=== PATIENT | female | born 1940 | race Caucasian/White ===

== ENCOUNTER 2019-05-08 08:34 | Outpatient (CLI) | payer MEDICARE, OTHER ==
[2019-05-08 16:54] LABS: #Basophils 0.1 thou/uL (0.0-0.2); #Eosinphils 0.4 thou/uL (0.0-0.7); #Lymphocytes 1.7 thou/uL (1.20-3.40); #Monocytes 0.6 thou/uL (0.11-0.59); %Basophils 0.8 % (0.0-1.0); %Eosinophils 4.7 % (0.0-10.0); %Lymphocytes 21.6 % (21.0-51.0); %Monocytes 7.6 % (0.0-10.0); %Neutrophils 65.4 % (42.0-75.0); Hemoglobin 13.5 g/dL (12.0-16.0); Mean Corpuscular HGB CONC 31.4 g/dL (32.0-36.0); Mean Corpuscular Hemoglobin 29.6 pg (27.0-31.0); Mean Corpuscular Volume 94.1 fL (78.0-98.0); Mean Platelet Volume 8.5 fL (7.4-10.4); Platelet Count 243 thou/uL (130-400); RBC Distribution Width 11.8 % (11.5-14.5); Red Blood Cell (RBC) Count 4.57 mill/uL (4.20-5.40); White Blood Cell (WBC) Count 7.6 thou/uL (4.8-10.8)
[2019-05-08 17:21] LABS: ALT (SGPT) 20 U/L (8-55); AST (SGOT) 21 U/L (5-34); Albumin 4.4 g/dL (3.4-4.8); Alkaline Phosphatase 73 U/L (40-110); Anion Gap 15 mmol/L (10-20); BUN (Urea Nitrogen) 25 mg/dL (9.8-20.1); Bilirubin, Total 0.4 mg/dL (0.2-1.2); Calc. Creatinine Clearance 0 mL/min (70-130); Calcium 9.6 mg/dL (7.8-10.44); Carbon Dioxide 25 mmol/L (23-31); Chloride 105 mmol/L (98-107); Estimated GFR-MDRD 57; Globulin 2.8 g/dL (2.4-3.5); Glucose 85 mg/dL (83-110); Potassium 4.7 mmol/L (3.5-5.1); Protein, Total 7.2 g/dL (6.0-8.3); Sodium 140 mmol/L (136-145)
== END 2019-05-08 08:35 | disposition home or self-care (01) ==
LOC: LABBT 08:34
PROVIDERS: ATTEND Surgery
DX: Z01.818 Encounter for other preprocedural examination (principal); N63.0 Unspecified lump in unspecified breast
CPT/HCPCS: 80053; 85025; 93005; 93010

== ENCOUNTER 2019-05-14 08:32 | Day surgery (SDC) | payer MEDICARE, OTHER ==
[2019-05-08 15:09] VITALS: BMI 35.6
[2019-05-14] MEDS ORDERED: Dexamethasone 20 MG/5 ML VIAL ONE (10:17)
[2019-05-14] MEDS ORDERED: PROPOFOL 200 MG/20 ML VIAL ONE (10:17)
[2019-05-14] MEDS ORDERED: Ondansetron PF 4 MG/2 ML Vial ONE (10:17)
[2019-05-14] MEDS ORDERED: Bupivacaine HCl 0.5%/Epinephrine 1:200,000/PF 30 ml Vial ONE (11:12)
[2019-05-14] MEDS ORDERED: Fentanyl 100 MCG/2 ML VIAL ONE (11:21)
--- NOTE | 2019-05-14 12:55 | OP ---
DATE OF PROCEDURE: 05/14/2019 PREOPERATIVE DIAGNOSIS: Left breast mass. PROCEDURE PERFORMED: Left breast lumpectomy. INDICATIONS: This is 78-year-old female who has had a normal mammogram, but it noticed a left nipple retraction over the last few months and it started developing a palpable mass. FINDINGS: A 3 x 3 cm mass in the upper outer quadrant of the left breast. DESCRIPTION OF PROCEDURE: After informed consent was obtained, the patient was taken to the operating room and given general mask anesthesia and placed in supine position. Her left breast was prepped and draped in usual fashion. Local anesthesia infiltrated subcutaneously and deep and a circumareolar incision was performed. Subcu divided sharply. The mass was excised sharply with Metzenbaum scissors and was marked with a black suture superior, blue suture anterior, white suture lateral, sent to Pathology for further analysis. Hemostasis was achieved with electrocautery. The wound was thoroughly irrigated with saline. Subcu reapproximated with interrupted 3-0 Vicryl, skin closed with running subcuticular 4-0 Rapide. Steri-Strips applied. Sterile bandage applied. The patient tolerated the procedure well and transferred to Recovery in good condition. Sponge and needle count verified correct x2. Job ID: [id number]
== END 2019-05-14 14:10 | disposition home or self-care (01) ==
LOC: SDC 08:32
PROVIDERS: ATTEND Surgery
PROC: 0HBU0ZZ Excision of Left Breast, Open Approach (ICD-10-PCS; principal; 2019-05-14)
DX: C50.412 Malignant neoplasm of upper-outer quadrant of left female breast (principal); K21.9 Gastro-esophageal reflux disease without esophagitis; M19.90 Unspecified osteoarthritis, unspecified site; G89.29 Other chronic pain; H91.93 Unspecified hearing loss, bilateral; Z79.899 Other long term (current) drug therapy
CPT/HCPCS: 88307; J0670; J0690; J1100; J2405; J2704; J3010

== ENCOUNTER 2019-05-17 15:38 | Emergency (ER) | payer MEDICARE, OTHER | END 2019-05-17 16:26 | disposition home or self-care (01) | LOC: SCSER 15:38 | DX: L25.9 Unspecified contact dermatitis, unspecified cause (principal) | CPT/HCPCS: 99282 ==

== ENCOUNTER 2019-06-12 06:46 | Outpatient (CLI) | payer MEDICARE, OTHER ==
[2019-06-12 11:01] LABS: #Basophils 0.1 thou/uL (0.0-0.2); #Eosinphils 0.4 thou/uL (0.0-0.7); #Lymphocytes 1.4 thou/uL (1.20-3.40); #Monocytes 0.5 thou/uL (0.11-0.59); #Neutrophils 3.9 thou/uL (1.40-6.50); %Basophils 1.2 % (0.0-1.0); %Lymphocytes 22.7 % (21.0-51.0); %Monocytes 7.7 % (0.0-10.0); %Neutrophils 62.4 % (42.0-75.0); Mean Corpuscular HGB CONC 33.5 g/dL (32.0-36.0); Mean Corpuscular Hemoglobin 31.2 pg (27.0-31.0); Mean Corpuscular Volume 93.3 fL (78.0-98.0); Mean Platelet Volume 7.9 fL (7.4-10.4); Platelet Count 230 thou/uL (130-400); RBC Distribution Width 11.6 % (11.5-14.5); White Blood Cell (WBC) Count 6.2 thou/uL (4.8-10.8)
[2019-06-12 11:13] LABS: ALT (SGPT) 20 U/L (8-55); AST (SGOT) 19 U/L (5-34); Albumin 4.2 g/dL (3.4-4.8); Alkaline Phosphatase 69 U/L (40-110); Anion Gap 12 mmol/L (10-20); BUN (Urea Nitrogen) 21 mg/dL (9.8-20.1); Bilirubin, Total 0.5 mg/dL (0.2-1.2); Calc. Creatinine Clearance 0 mL/min (70-130); Calcium 9.8 mg/dL (7.8-10.44); Carbon Dioxide 26 mmol/L (23-31); Chloride 104 mmol/L (98-107); Estimated GFR-MDRD 60; Globulin 3.1 g/dL (2.4-3.5); Glucose 95 mg/dL (83-110); Potassium 4.1 mmol/L (3.5-5.1); Protein, Total 7.3 g/dL (6.0-8.3); Sodium 138 mmol/L (136-145)
== END 2019-06-12 06:47 | disposition home or self-care (01) ==
LOC: LABBT 06:46
PROVIDERS: ATTEND Surgery
DX: Z01.818 Encounter for other preprocedural examination (principal); C50.912 Malignant neoplasm of unspecified site of left female breast; N63.20 Unspecified lump in the left breast, unspecified quadrant
CPT/HCPCS: 80053; 85025; 93005; 93010

== ENCOUNTER 2019-06-12 09:15 | Inpatient (IN) | payer MEDICARE, OTHER ==
[2019-06-12 09:47] VITALS: BMI 33.7
[2019-06-18] MEDS ORDERED: PROPOFOL 200 MG/20 ML VIAL ONE (12:59)
[2019-06-18] MEDS ORDERED: Ondansetron PF 4 MG/2 ML Vial ONE (12:59)
[2019-06-18] MEDS ORDERED: Dexamethasone 20 MG/5 ML VIAL ONE (12:59)
[2019-06-18] MEDS ORDERED: Lidocaine 1% PF 5 ML VIAL ONE (12:59)
--- NOTE | 2019-06-18 13:03 | NM ---
EXAM: NM Lymphoscintigraphy, left breast PROVIDED CLINICAL HISTORY: Malignant neoplasm left female breast of unspecified site. Left breast lymphoscintigraphy was request ed prior to mastectomy. COMPARISON: None FINDINGS: Left breast lymphoscintigraphy was performed in usual fashion. 385 uCi of technetium 99m filtered sul fur colloid was administered intradermally and subcutaneously in 4 separate aliquots in the left periareolar region. Immediate as well as 1 hour, 2 hour, 3 hour delayed imaging was performed. No foc al area of uptake of radiotracer is seen to correspond to a sentinel lymph node on delayed imaging. As a result, the patient was transported to the operating room for surgery. IMPRESSION: Left breast lymphoscintigraphy was performed. However, no focal area of uptake of radiotracer is visu alized corresponding to a sentinel lymph node as described above.
[2019-06-18] MEDS ORDERED: Isosulfan Blue 50 MG/5 ML VIAL ONE (13:04)
[2019-06-18] MEDS ORDERED: Bupivacaine PF 0.5% 30 ML VIAL ONE (13:04)
[2019-06-18] MEDS ORDERED: Lidocaine 1% w/Epinephrine 1:100K 20 ML VIAL ONE (13:04)
[2019-06-18] MEDS ORDERED: Fentanyl 100 MCG/2 ML VIAL ONE ×3 (13:07→16:51)
[2019-06-18] MEDS ORDERED: hydrALAZINE 20 MG/ML VIAL SLOW IVP PRN (15:34)
[2019-06-18] MEDS ORDERED: Morphine 4 MG/ML VIAL SLOW IVP PRN (15:34)
[2019-06-18] MEDS ORDERED: HYDROcodone/Acetaminophen 10/325 mg Tablet PO PRN ×2 (15:34)
[2019-06-18] MEDS ORDERED: Ondansetron PF 4 MG/2 ML Vial IVP PRN (15:34)
[2019-06-18] MEDS ORDERED: Promethazine HCl 25 MG/ML VIAL IM PRN ×2 (15:34→15:37)
[2019-06-18] MEDS ORDERED: Dextrose 50% Abboject 50 ML SYRINGE SLOW IVP PRN (15:34)
[2019-06-18] MEDS ORDERED: Dextrose 5% in Water 1,000 ML IV PRN (15:34)
[2019-06-18] MEDS ORDERED: Morphine 2 MG/ML SYRINGE SLOW IVP PRN (15:34)
[2019-06-18] MEDS ORDERED: Ondansetron HCl/PF 4 MG/2 ML Vial IVP PRN (15:37)
[2019-06-18] MEDS ORDERED: Promethazine HCl 25 MG/ML VIAL SLOW IVP PRN (15:37)
[2019-06-18] MEDS: Famotidine 20 MG TAB PO SCH (20:45)
[2019-06-18] MEDS: Docusate 100 MG CAP PO SCH (20:45)
[2019-06-19] MEDS: D5 1/2 NS w/20 mEq KCL 1,000 ML IV SCH ×3 (01:13→06:25)
[2019-06-19 05:01] LABS: #Eosinphils 0.1 thou/uL (0.0-0.7); #Lymphocytes 0.8 thou/uL (1.20-3.40); #Monocytes 0.8 thou/uL (0.11-0.59); #Neutrophils 10.3 thou/uL (1.40-6.50); %Basophils 0.1 % (0.0-1.0); %Eosinophils 0.6 % (0.0-10.0); %Lymphocytes 6.3 % (21.0-51.0); %Monocytes 6.9 % (0.0-10.0); %Neutrophils 86.2 % (42.0-75.0); Hemoglobin 11.8 g/dL (12.0-16.0); Mean Corpuscular HGB CONC 33.6 g/dL (32.0-36.0); Mean Corpuscular Hemoglobin 31.5 pg (27.0-31.0); Mean Corpuscular Volume 93.8 fL (78.0-98.0); Mean Platelet Volume 8.5 fL (7.4-10.4); Platelet Count 198 thou/uL (130-400); RBC Distribution Width 11.6 % (11.5-14.5); Red Blood Cell (RBC) Count 3.74 mill/uL (4.20-5.40); White Blood Cell (WBC) Count 11.9 thou/uL (4.8-10.8)
[2019-06-19 05:16] LABS: Anion Gap 11 mmol/L (10-20); BUN (Urea Nitrogen) 18 mg/dL (9.8-20.1); Calc. Creatinine Clearance 78 mL/min (70-130); Calcium 8.7 mg/dL (7.8-10.44); Carbon Dioxide 25 mmol/L (23-31); Chloride 106 mmol/L (98-107); Estimated GFR-MDRD 66; Glucose 115 mg/dL (83-110); Potassium 4.2 mmol/L (3.5-5.1); Sodium 138 mmol/L (136-145)
[2019-06-19 07:38] VITALS: BP 101/55; TEMP 97.8
[2019-06-19] MEDS: Docusate 100 MG CAP PO SCH (08:53)
[2019-06-19] MEDS: Famotidine 20 MG TAB PO SCH (08:53)
[2019-06-19] MEDS ORDERED: Enoxaparin Sodium 40 MG/0.4 ML SYRINGE SC SCH (09:00)
--- NOTE | 2019-06-19 09:00 | OP ---
DATE OF PROCEDURE: 06/18/2019 PREOPERATIVE DIAGNOSIS: Invasive lobular carcinoma of the left breast. PROCEDURES PERFORMED: Bilateral total mastectomy with sentinel lymph node biopsy on the left and lymphoscintigraphy. 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 She elected for bilateral mastectomy. FINDINGS: Two sentinel lymph nodes were found. DESCRIPTION OF PROCEDURE: After informed consent was obtained, the patient was taken to the operating room, given general endotracheal anesthesia, placed in supine position. Both breasts were prepped and draped in usual fashion. She had undergone injection of radionucleotide in the nuclear medicine department. Started on the right, an elliptical incision was performed to include the nipple areolar complex. The plane was developed between subcutaneous tissue and breast tissue utilizing the plasma blade. This was extended to the level of the clavicle superiorly, sternum medially, latissimus laterally, rectus inferiorly, then taken off the pectoralis muscle to include the fascia with the plasma blade. It was marked with a suture superior and sent to Pathology for further analysis. Hemostasis was achieved utilizing the plasma blade. Subcu was irrigated. The subcu was reapproximated with interrupted 3-0 Vicryl. Skin was closed with a running subcuticular 4-0 Rapide. Then, Lymphazurin was then infiltrated subareolar and peritumoral. The Neoprobe was used, and a baseline with counts of 15 were found, found the area of transcutaneous counts of 21. The elliptical incision was performed. Subcu was divided sharply. Using the Neoprobe, two nodes were found high in the axilla with in-vivo counts of about 25 to 30. Efferent and afferent lymphatics were ligated with 3-0 Vicryl ties, sent to Pathology as sentinel node 1 and 2. Then, the plane was developed between subcutaneous tissue and breast tissue utilizing the plasma blade to the level of the clavicle superiorly, latissimus laterally, rectus inferiorly, and the sternum medially, taken off the pectoralis muscle to include the fascia. Hemostasis was achieved with the plasma blade. Two drains were placed, brought out through separate stab wounds. The subcu was reapproximated with interrupted 3-0 Vicryl. Skin was closed with a running subcuticular 4-0 Rapide. Steri-Strips were applied. Sterile bandage was applied. The patient tolerated the procedure well, transferred to Recovery in good condition. Sponge and needle count verified correct x2. Job ID: [id number]
--- NOTE | 2019-06-19 13:58 | DIS ---
DATE OF ADMISSION: 06/18/2019 DATE OF DISCHARGE: 06/19/2019 DISCHARGE DIAGNOSIS: Invasive lobular carcinoma of the left breast. PROCEDURES DURING ADMISSION: Bilateral total mastectomies and left sentinel lymph node biopsy. HOSPITAL COURSE: The patient was admitted, taken to the operating room where she underwent a right bilateral total mastectomy and sentinel node biopsy. Postoperatively, she has done well. Her pain is well controlled on p.o. medications. She is tolerating a regular diet. She is discharged home on hydrocodone and Zofran. She will follow up with me on Sunday. Job ID: [id number]
[2019-06-20] MEDS ORDERED: Enoxaparin Sodium 40 MG/0.4 ML SYRINGE SC SCH (09:00)
--- NOTE | 2019-06-27 04:58 | PQF ---
[employer] Sales Consultant Crystal Reports Winform ViewerSIDNEY & LO[facility] ÓSCARNAA NICOLE BRADLEY CHE JR, MD [id number] SURG A- [id number] CLINICAL DOCUMENTATION CLARIFICATION FORM: POST DISCHARGE Addendum to original discharge summary date: ____ Late entry note date: __ DATE: 06/27/2019 ATTN:BRADLEY CHE JR, MD Please exercise your independent, professional judgment in responding to the clarification form. Clinical indicators are provided on the bottom of this form for your review ___ Final Diagnosis on the Pathology report: Lymph node Metastatic carcinoma Clarification of Pathology report: Please check appropriate box(s): [ x ] Agree w the pathology finding of: [ ] Other explanation of pathology findings (please specify) [ ] Other diagnosis [ ] Unable to determine For continuity of documentation, please document condition throughout progress notes and discharge summary. Thank You. CLINICAL INDICATORS - SIGNS/ SYMPTOMS / LABS [place] Lymph node involved by metastatic carcinoma - Documented in Pathology Report RISK FACTORS Invasive Lobular carcinoma of the left breast - Documented in DS on 06/19 by BRADLEY CHE JR, MD TREATMENTS Bilateral Total Mastectomy with sentinel lymph node biopsy -Operative report Lymphoscintigraphy (This form is maintained as a part of the permanent medical record) 2014 [employer] All Rights Reserved Marialuisa [email or web address] [not provided] MTDD
== END 2019-06-19 12:08 | disposition home or self-care (01) | DRG 580 ==
LOC: EDSTATUS 09:15 → SURG A 06-18 07:20
PROVIDERS: ADMIT Surgery; ATTEND Surgery
PROC: 0HTV0ZZ Resection of Bilateral Breast, Open Approach (ICD-10-PCS; principal; 2019-06-18)
PROC: 07B60ZX Excision of Left Axillary Lymphatic, Open Approach, Diagnostic (ICD-10-PCS; 2019-06-18)
PROC: C71N1ZZ Planar Nuclear Medicine Imaging of Upper Extremity Lymphatics using Technetium 99m (Tc-99m) (ICD-10-PCS; 2019-06-18)
DX: C50.912 Malignant neoplasm of unspecified site of left female breast (principal); C77.9 Secondary and unspecified malignant neoplasm of lymph node, unspecified; Z88.8 Allergy status to other drugs, medicaments and biological substances; Z96.651 Presence of right artificial knee joint; Z90.710 Acquired absence of both cervix and uterus
CPT/HCPCS: 36415; 78195; 80048; 85025; 88307; A9541; J0690; J1100; J1650; J2001; J2405; J2704; J3010; Q9968; S0020

== ENCOUNTER 2019-07-16 12:48 | Outpatient (CLI) | payer MEDICARE, OTHER ==
[2019-07-16 16:09] LABS: #Basophils 0.1 thou/uL (0.0-0.2); #Eosinphils 0.9 thou/uL (0.0-0.7); #Lymphocytes 2.1 thou/uL (1.20-3.40); #Monocytes 0.6 thou/uL (0.11-0.59); #Neutrophils 3.9 thou/uL (1.40-6.50); %Basophils 1.1 % (0.0-1.0); %Eosinophils 11.4 % (0.0-10.0); %Lymphocytes 27.8 % (21.0-51.0); %Monocytes 8.1 % (0.0-10.0); %Neutrophils 51.5 % (42.0-75.0); Hemoglobin 13.2 g/dL (12.0-16.0); Mean Corpuscular HGB CONC 33.1 g/dL (32.0-36.0); Mean Corpuscular Hemoglobin 31.1 pg (27.0-31.0); Mean Corpuscular Volume 94.1 fL (78.0-98.0); Mean Platelet Volume 8.9 fL (7.4-10.4); Platelet Count 225 thou/uL (130-400); RBC Distribution Width 11.7 % (11.5-14.5); Red Blood Cell (RBC) Count 4.23 mill/uL (4.20-5.40); White Blood Cell (WBC) Count 7.5 thou/uL (4.8-10.8)
[2019-07-16 16:29] LABS: Anion Gap 15 mmol/L (10-20); BUN (Urea Nitrogen) 28 mg/dL (9.8-20.1); Calc. Creatinine Clearance 0 mL/min (70-130); Calcium 9.4 mg/dL (7.8-10.44); Carbon Dioxide 24 mmol/L (23-31); Chloride 109 mmol/L (98-107); Estimated GFR-MDRD 38; Glucose 93 mg/dL (83-110); Sodium 144 mmol/L (136-145)
== END 2019-07-16 12:49 | disposition home or self-care (01) ==
LOC: LABBT 12:48
PROVIDERS: ATTEND Surgery
DX: Z01.818 Encounter for other preprocedural examination (principal); C50.912 Malignant neoplasm of unspecified site of left female breast
CPT/HCPCS: 80048; 85025; 93005; 93010

== ENCOUNTER 2019-07-21 05:54 | Day surgery (SDC) | payer MEDICARE, OTHER ==
[2019-07-16 14:32] VITALS: BMI 32.8
[2019-07-21] MEDS ORDERED: Lidocaine 1% w/Epinephrine 1:100K 20 ML VIAL ONE (07:05)
[2019-07-21] MEDS ORDERED: Bupivacaine 0.25% HCL 30 ML VIAL ONE (07:05)
[2019-07-21] MEDS ORDERED: Fentanyl 100 MCG/2 ML VIAL ONE (07:19)
[2019-07-21] MEDS ORDERED: Midazolam HCl 2 mg/2 ml Vial ONE (08:04)
--- NOTE | 2019-07-21 09:08 | RAD ---
Chest AP view INDICATION: Mediport placement COMPARISON: None FINDINGS: Lungs:The lungs are clear Cardiac silhouette:The cardiomediastinal silhouette appears within normal limits. Pulmonary vasculature:Normal Pleural spaces:No pleural effusion or pneumothorax is demonstrated. Upper abdomen:No abnormality seen. Osseous structures: No acute osseous abnormality. Additional findings:There is a new right subclavian chest wall port in place. The tip of the catheter projects in the region of the caval atrial junction. IMPRESSION: No acute cardiopulmonary abnormality. New right chest wall port.
[2019-07-21] MEDS ORDERED: Lidocaine 1% PF 5 ML VIAL ONE (09:58)
[2019-07-21] MEDS ORDERED: PROPOFOL 200 MG/20 ML VIAL ONE (09:59)
--- NOTE | 2019-07-22 14:19 | OP ---
DATE OF PROCEDURE: 07/21/2019 PREOPERATIVE DIAGNOSIS: Breast cancer. PROCEDURE PERFORMED: MediPort placement. INDICATIONS: This is a 78-year-old female who has node-positive invasive lobular carcinoma of the breast, needs access for chemotherapy. FINDINGS: Could not access the right internal jugular vein, was able to place the catheter in the right subclavian vein. DESCRIPTION OF PROCEDURE: After informed consent was obtained, the patient was taken to the operating room, given total IV anesthesia, placed in supine position. The chest and neck were prepped and draped in the usual fashion. Local anesthesia infiltrated subcutaneously and deep and the patient placed in Trendelenburg position. An attempt was made to access the right IJ, got some backflow of venous blood, but it was poor, wind up, moving to the subclavian area. Again, local anesthesia infiltrated subcutaneously and deep. Introducer inserted right subclavian with good backflow of venous blood. J-wire threaded easily. Fluoroscopy was performed, showing good placement in the superior vena cava and the skin and subcu anesthetized with local anesthesia. A transverse chest wall incision was performed, subcu divided sharply utilizing electrocautery. A pocket was created on the anterior chest wall. Then, the tunneling device was used to connect the catheter subcutaneously between the 2 incisions. The catheter was connected to the port and the system was flushed with heparinized saline. The port was secured to the pectoralis fascia with interrupted 2-0 Prolene suture. The catheter was cut to size and the Peel-Away introducer inserted over the wire. The wire removed. The catheter inserted through the Peel-Away introducer. Then, the Peel-Away introducer removed. Again, fluoroscopy was performed, showed good placement in the superior vena cava. The system accessed with Gerber needle. Good backflow of venous blood, flushed with heparinized saline. Subcu was then reapproximated with interrupted 3-0 Vicryl. Skin closed with a running 4-0 Vicryl. Dermabond applied. Then, the system was accessed with the Gerber needle system to be remained accessed because she per Oncology requested as they want her to start chemo today, so the system was accessed with the Gerber needle again. Good backflow of venous blood, flushed with heparinized saline and a sterile bandage applied. The patient transferred to Recovery in good condition. Job ID: [id number]
== END 2019-07-21 09:20 | disposition home or self-care (01) ==
LOC: SDC 05:54
PROVIDERS: ATTEND Surgery
PROC: 02HV33Z Insertion of Infusion Device into Superior Vena Cava, Percutaneous Approach (ICD-10-PCS; principal; 2019-07-21)
PROC: B518ZZA Fluoroscopy of Superior Vena Cava, Guidance (ICD-10-PCS; 2019-07-21)
DX: C50.912 Malignant neoplasm of unspecified site of left female breast (principal); M19.90 Unspecified osteoarthritis, unspecified site; Z88.8 Allergy status to other drugs, medicaments and biological substances
CPT/HCPCS: 36561; 71045; C1788; J0690; J1642; J2250; J3010; S0020

== ENCOUNTER 2020-03-09 07:40 | Outpatient (CLI) | payer MEDICARE, OTHER ==
[2020-03-09 16:18] LABS: #Eosinphils 0.3 thou/uL (0.0-0.7); #Lymphocytes 0.7 thou/uL (1.20-3.40); #Monocytes 0.5 thou/uL (0.11-0.59); #Neutrophils 4.3 thou/uL (1.40-6.50); %Basophils 0.4 % (0.0-1.0); %Eosinophils 5.9 % (0.0-10.0); %Lymphocytes 11.4 % (21.0-51.0); %Monocytes 7.8 % (0.0-10.0); %Neutrophils 74.6 % (42.0-75.0); Hemoglobin 12.7 g/dL (12.0-16.0); Mean Corpuscular HGB CONC 32.4 g/dL (32.0-36.0); Mean Corpuscular Hemoglobin 30.7 pg (27.0-31.0); Mean Corpuscular Volume 94.7 fL (78.0-98.0); Platelet Count 189 thou/uL (130-400); RBC Distribution Width 13.2 % (11.5-14.5); Red Blood Cell (RBC) Count 4.16 mill/uL (4.20-5.40); White Blood Cell (WBC) Count 5.8 thou/uL (4.8-10.8)
[2020-03-09 16:50] LABS: ALT (SGPT) 22 U/L (8-55); AST (SGOT) 24 U/L (5-34); Alkaline Phosphatase 63 U/L (40-110); Anion Gap 15 mmol/L (10-20); BUN (Urea Nitrogen) 27 mg/dL (9.8-20.1); Bilirubin, Total 0.3 mg/dL (0.2-1.2); Calc. Creatinine Clearance 0 mL/min (70-130); Calcium 9.3 mg/dL (7.8-10.44); Carbon Dioxide 25 mmol/L (23-31); Chloride 108 mmol/L (98-107); Estimated GFR-MDRD 55; Globulin 2.7 g/dL (2.4-3.5); Glucose 89 mg/dL (83-110); Potassium 4.8 mmol/L (3.5-5.1); Protein, Total 6.7 g/dL (6.0-8.3); Sodium 143 mmol/L (136-145)
[2020-03-10 13:02] LABS: SARS-CoV-2 MS2 Positive; SARS-CoV-2 N Gene Negative; SARS-CoV-2 S Gene Negative; SARS-CoV-2 by NAA Not Detected (NotDetected); SARS-CoV-2 orf1ab Negative
== END 2020-03-09 07:41 | disposition home or self-care (01) ==
LOC: LABBT 07:40
PROVIDERS: ATTEND Surgery
DX: Z01.818 Encounter for other preprocedural examination (principal); Z20.828 Contact with and (suspected) exposure to other viral communicable diseases; Z85.3 Personal history of malignant neoplasm of breast
CPT/HCPCS: 80053; 85025; U0003; 87635; 93005; 93010

== ENCOUNTER 2020-03-12 05:50 | Day surgery (SDC) | payer MEDICARE, OTHER ==
[2020-03-10 11:32] VITALS: BMI 32.4
[2020-03-12] MEDS ORDERED: Lidocaine 2% w/Epinephrine 1:200K 20 ML VIAL ONE (06:39)
[2020-03-12] MEDS ORDERED: Bupivacaine PF 0.5% 30 ML VIAL ONE (06:39)
[2020-03-12] MEDS ORDERED: Lidocaine 1% w/Epinephrine 1:100K 20 ML VIAL ONE (06:39)
[2020-03-12] MEDS ORDERED: Fentanyl 100 MCG/2 ML VIAL ONE (06:56)
[2020-03-12] MEDS ORDERED: PROPOFOL 20 ML ONE (08:24)
--- NOTE | 2020-03-12 10:52 | OP ---
DATE OF PROCEDURE: 03/12/2020 PREOPERATIVE DIAGNOSIS: Completed chemo. PROCEDURE PERFORMED: MediPort removal. INDICATIONS: This is an 79-year-old female who has completed chemo for breast cancer, no longer needs a MediPort. FINDINGS: Intact system removed. DESCRIPTION OF PROCEDURE: After informed consent was obtained, the patient was taken to the operating room, given total IV anesthesia, placed in supine position. Her chest was prepped and draped in usual fashion. Local anesthesia was infiltrated with 0.5% Marcaine. A transverse incision was performed through the old scar. The capsule was incised. Sutures were removed. The device was removed. A [id number] of 3-0 Vicryl was used to close off the tunnel. Then, the pocket was irrigated. Hemostasis was assured. The subcu was reapproximated with interrupted 3-0 Vicryl. The skin closed with a running subcuticular 4-0 Rapide. Steri-Strips applied. Sterile bandage applied. The patient tolerated the procedure well, transferred to Recovery in good condition. Sponge and needle count verified correct x2. Job ID: [id number]
--- NOTE | 2020-03-14 16:06 | EKG ---
Test Reason : PREOP Blood Pressure : / mmHG Vent. Rate : 064 BPM Atrial Rate : 064 BPM P-R Int : 170 ms QRS Dur : 102 ms QT Int : 414 ms P-R-T Axes : 013 -44 011 degrees QTc Int : 427 ms Normal sinus rhythm Left axis deviation Abnormal ECG No previous ECGs available Confirmed by Kandy ROSARIO ([id number]) on 03/14/2020 4:05:27 PM Referred By: CHINEDU Confirmed By:Kandy ROSARIO
== END 2020-03-12 09:14 | disposition home or self-care (01) ==
LOC: SDC 05:50
PROVIDERS: ATTEND Surgery
PROC: 0JPT0WZ Removal of Totally Implantable Vascular Access Device from Trunk Subcutaneous Tissue and Fascia, Open Approach (ICD-10-PCS; principal; 2020-03-12)
DX: Z45.2 Encounter for adjustment and management of vascular access device (principal); C50.912 Malignant neoplasm of unspecified site of left female breast; K21.9 Gastro-esophageal reflux disease without esophagitis; M19.90 Unspecified osteoarthritis, unspecified site; G89.29 Other chronic pain; Z79.811 Long term (current) use of aromatase inhibitors; Z79.899 Other long term (current) drug therapy; Z88.8 Allergy status to other drugs, medicaments and biological substances
CPT/HCPCS: 93005; 93010; J0690; J1642; J2704; J3010; S0020

== ENCOUNTER 2020-10-26 12:23 | Outpatient (CLI) | payer MEDICARE, OTHER | END 2020-10-26 12:24 | disposition home or self-care (01) | LOC: MRI 12:23 | PROVIDERS: ATTEND Surgery | DX: M43.16 Spondylolisthesis, lumbar region (principal); M54.5 Low back pain; M47.816 Spondylosis without myelopathy or radiculopathy, lumbar region; M47.817 Spondylosis without myelopathy or radiculopathy, lumbosacral region; M43.17 Spondylolisthesis, lumbosacral region; M48.56XA Collapsed vertebra, not elsewhere classified, lumbar region, initial encounter for fracture | CPT/HCPCS: 72100; 72131; 72148 ==